=== PATIENT | male | born 1980 ===

== ENCOUNTER → 2024-08-22 | Outpatient (CLI) | payer OTHER ==
[2024-08-25 09:54] LABS: APTIMA MEDIA TYPE MultiTest Swab; C. TRACHOMATIS BY TMA Negative (Negative); N. GONORRHOEAE BY TMA Negative (Negative); SPECIMEN SOURCE Pharynx
== END ==
LOC: LAB SHORT 18:40 → LAB 18:40
PROVIDERS: Registered Nurse Community Health
DX: Z20.2 Contact with and (suspected) exposure to infections with a predominantly sexual mode of transmission (principal)
CPT/HCPCS: 87491; 87591